=== PATIENT | female | born 1975 | race Caucasian/White ===

== ENCOUNTER 2023-10-05 07:54 | Inpatient (IN) ==
--- NOTE | 2023-06-25 12:04 | PAT Medication Instructions ---
Medication Instructions Date of Service June 25, 2023 Home Medications Cell Activator 1 tab PO BID acyclovir 200 mg capsule 200 mg PO BID amitriptyline 100 mg tablet 100 mg PO QPM PRN Sleep apremilast 30 mg tablet (Otezla) 30 mg PO BID duloxetine 60 mg capsule,delayed release (Cymbalta) 60 mg PO QAM multivitamin 1 tab PO BID pantoprazole 40 mg tablet,delayed release (Protonix) 40 mg PO QAM ASK your prescriber and surgeon apremilast 30 mg tablet (Otezla) 30 mg PO BID STOP taking 2 weeks before surgery (or as soon as possible if surgery is within 2 weeks) Cell Activator 1 tab PO BID DO NOT take the morning of surgery multivitamin 1 tab PO BID Take morning of surgery With a small sip of water, OTHERWISE NOTHING TO EAT OR DRINK AFTER MIDNIGHT: acyclovir 200 mg capsule 200 mg PO BID duloxetine 60 mg capsule,delayed release (Cymbalta) 60 mg PO QAM pantoprazole 40 mg tablet,delayed release (Protonix) 40 mg PO QAM Take evening before surgery acyclovir 200 mg capsule 200 mg PO BID amitriptyline 100 mg tablet 100 mg PO QPM PRN Sleep (if needed) multivitamin 1 tab PO BID Other Notes If you have any questions please call us at [phone] or [phone] or [phone] or [phone]
--- NOTE | 2023-06-26 13:59 | Anesthesiology Consultation ---
Date of Service June 26, 2023 Assessment & Plan (1) Encounter for pre-operative examination: Chart Review Chart Review: Acceptable Risk for Surgery (pending PCP clearance 07/05/23) and Patient seen in Pre Admission Testing - [facility] Per PAT appt on 06/26/23, no recent illness/disease exposures, illness related symptoms, or recent illness/disease positive tests. Will leave to surgeon's discretion if preop Covid testing needed Teaching & Discussion Pre-Anesthesia Teaching/Discussion Notes: Instructed NPO after midnight before surgery,except medications with 15 cc of water. Medication instructions provided according to the PAT guidelines. History Surgery Operation Date: 07/27/23 07:45 Proposed Procedures p L4-S1 Decompression and Fusion, Spinal Cord Monitoring - Adi Hunt DO Height/Weight Height: 5 ft 8 in Weight: 80.3 kg Allergies Allergy/AdvReac Type Severity Reaction Status Date / Time oxycodone [From Percocet] Allergy Mild itchy Verified 06/25/23 10:49 Medications Home Medications Medication Instructions Recorded Confirmed Last Taken Cell Activator 1 tab PO BID 06/25/23 06/25/23 Unknown acyclovir 200 mg capsule 200 mg PO BID 06/25/23 06/25/23 Unknown amitriptyline 100 mg tablet 100 mg PO QPM PRN Sleep 06/25/23 06/25/23 Unknown apremilast 30 mg tablet (Otezla) 30 mg PO BID 06/25/23 06/25/23 Unknown duloxetine 60 mg capsule,delayed 60 mg PO QAM 06/25/23 06/25/23 Unknown release (Cymbalta) multivitamin 1 tab PO BID 06/25/23 06/25/23 Unknown pantoprazole 40 mg tablet,delayed 40 mg PO QAM 06/25/23 06/25/23 Unknown release (Protonix) Past Medical History Medical History (Updated 06/26/23 @ 14:21 by Silvina Ridley PARadhaC) Anxiety Chronic back pain Depression GERD (gastroesophageal reflux disease) well controlled and stable History of COVID-2019--mild symptoms, no symptoms now Psoriasis Exercise / Class Metabolic Activity II 4-5 Yardwork/Stairs/Walk up hill (one flight of stairs - no chest pain or SOB ) Past Family History Family History Other No family history of adverse response to anesthesia Past Surgical History Surgical History History of benign breast biopsy History of section History of colonoscopy History of endometrial ablation History of esophagogastroduodenoscopy (EGD) History of hysterectomy with unilateral oophorectomy right removed History of nasal septoplasty x2 History of tonsillectomy History of tooth extraction all upper teeth removed History of total right knee replacement (TKR) History of umbilical hernia repair History of wisdom tooth extraction Past Anesthesia History No Hx of Anesthesia Complications and No Family Hx of Anesthesia Complications History of PONV No Hx of PONV and No Hx of Motion Sickness Social History Smoking Status: Former smoker Do You Dip or Chew Tobacco: No Smoking End Date: quit 1 month ago Hx Alcohol Use: No Hx Substance Use: No substance use type: does not use Review of Systems Patient denies chest pain, shortness of breath, dyspnea on exertion, cough, wheezing, palpitations. No hx of seizures, stroke, MO, apnea/snoring. No hx of blood clots or blood transfusions Physical Exam Vital Signs VITALS BP 114/75 P 99 TEMP 98.7 SP02 97% RESP 16 Constitutional no acute distress ENMT Mouth: no TMJ clicking Thyromental Distance: > or= 3.5 Finger Breadths (3.5) Mallampati Class: III Full upper plate Neck neck extension not limited Respiratory normal respiratory effort; no respiratory distress Auscultation: lungs clear to auscultation bilaterally; no wheezes Cardiovascular Rate/Rhythm: regular rate and regular rhythm Heart Sounds: no murmur Vessels: no carotid bruit Musculoskeletal Spine: no pain with cervical ROM Extremities: extremities normal to inspection Psychiatric Orientation: alert Lab Results Anesthesia Preop Results Results Anesthesia Widget: WBC 8.54 K/ul (4.8-10.8) 06/26/23 Hgb 13.8 g/dl (12.0-16.0) 06/26/23 Hct 40.0 % (37.0-47.0) 06/26/23 Plt 355 K/uL (130-400) 06/26/23 Na 140 mmol/L (136-145) 06/26/23 K 3.9 mmol/L (3.5-5.1) 06/26/23 Cl 102 mmol/L (98-107) 06/26/23 CO2 31 mmol/L (21-32) 06/26/23 BUN 12 mg/dl (6-23) 06/26/23 Creat 0.68 mg/dl (0.6-1.2) 06/26/23 Glucose Level 116 mg/dl (70-99(Fasting)) H 06/26/23 PT 10.3 Seconds (9.0-12.0) 06/26/23 PTT 27 Seconds (21-31) 06/26/23 INR 0.9 (0.9-1.1) 06/26/23 Urine Color Dark Yellow 06/26/23 Urine Appearance Clear (Clear) 06/26/23 Urine pH 6.5 (4.5-7.5) 06/26/23 Urine Specific [place] 1.008 (1.000-1.030) 06/26/23 Urine Protein Negative (Negative) 06/26/23 Urine Glucose (UA) Negative (Negative) 06/26/23 Urine Ketones Negative (Negative) 06/26/23 Urine Blood Negative (Negative) 06/26/23 Urine Nitrite Negative (Negative) 06/26/23 Urine Bilirubin Negative (Negative) 06/26/23 Urine Urobilinogen Negative (Negative) 06/26/23 Urine Leukocyte Esterase Negative (Negative) 06/26/23 Blood Type A Positive 06/26/23 Antibody Screen NEGATIVE 06/26/23 Testing Electrocardiogram Date: 06/26/23 Findings: + NSR @ (91bpm) Normal EKG per cardio Chest X-Ray Date: 06/26/23 Findings: + NAD
[~2023-10-05 07:54] MED LIST: CeleBREX 200 MG CAP PO SCH; GABAPENTIN 900 MG DOSE PO SCH; LR 15ML/HR IV SCH; LR 60ML/HR IV SCH; ceFAZolin 2000MG 2,000 MG/15 ML SYR IV SCH
--- NOTE | 2023-10-05 08:36 | History & Physical Bridge Note ---
Date of Service October 05, 2023 History & Physical Bridge Note I have examined the patient, reviewed the History & Physical and in the interval since the performance of the History & Physical I have noted the following changes of clinical significance: no changes noted
--- NOTE | 2023-10-05 08:36 | History & Physical Report ---
Date of Service October 05, 2023 Assessment & Plan (1) Neurogenic claudication due to lumbar spinal stenosis: Plan: L4-S1 decompression and fusion History of Present Illness Chief Complaint: Back and bilateral leg pain Primary Care Provider: Jake Pate This is a 47-year-old female who presents with chronic persistent back and leg pain after failing course of nonoperative care is here for surgical invention. Allergies Allergy/AdvReac Type Severity Reaction Status Date / Time oxycodone [From Percocet] AdvReac Mild itchy Verified 10/05/23 08:15 Home Medications Medication Instructions Recorded Confirmed Type Cell Activator 1 tab PO BID 06/25/23 10/05/23 History acyclovir 200 mg capsule 200 mg PO BID 06/25/23 10/05/23 History amitriptyline 100 mg tablet 100 mg PO QPM PRN Sleep 06/25/23 10/05/23 History apremilast 30 mg tablet (Otezla) 30 mg PO BID 06/25/23 10/05/23 History duloxetine 60 mg capsule,delayed 60 mg PO QAM 06/25/23 10/05/23 History release (Cymbalta) multivitamin 1 tab PO BID 06/25/23 10/05/23 History pantoprazole 40 mg tablet,delayed 40 mg PO QAM 06/25/23 10/05/23 History release (Protonix) cholecalciferol (vitamin D3) 125 125 mcg PO QAM 09/25/23 10/05/23 History mcg (5,000 unit) tablet (Vitamin D3) ibuprofen 200 mg tablet 200 mg PO TID PRN Pain 09/25/23 10/05/23 History Past Med/Surg History Problem List (Updated 10/05/23 @ 08:36 by Adi Hunt DO) Neurogenic claudication due to lumbar spinal stenosis Encounter for pre-operative examination Medical History (Updated 10/05/23 @ 08:36 by Adi Hunt DO) Bulging lumbar disc Psoriasis Chronic back pain GERD (gastroesophageal reflux disease) well controlled and stable Depression Anxiety History of COVID2019--mild symptoms, no symptoms now Surgical History History of section History of benign breast biopsy History of hysterectomy with unilateral oophorectomy right removed History of endometrial ablation History of total right knee replacement (TKR) History of colonoscopy History of esophagogastroduodenoscopy (EGD) History of umbilical hernia repair History of wisdom tooth extraction History of tooth extraction all upper teeth removed History of nasal septoplasty x2 History of tonsillectomy Family History Other No family history of adverse response to anesthesia Social History Smoking Status: Former smoker Tobacco Type: Cigarettes Smoking End Date: 05/2023; Second Hand Exposure: No; Do You Dip or Chew Tobacco: No; Tobacco Cessation Education Requested by Patient: No Hx Alcohol Use: No Hx Substance Use: No Preferred Language: Romanian Communication Ability: Effective Gaming Cage Worker Required: No Beliefs That Will Affect Care: None Current Living Situation: Family Current Living Situation Comment: Lives with 16 yr old daughter Other Information That Helps Us Care for You: No Feels Safe at Home: Yes Safety Concerns: Feels Safe At This Time Assistive Devices: Denture - Upper and Glasses Assistive Devices Comment: reading glasses Physical Exam Physical Exam: Patient is alert and oriented Heart regular in rhythm Lungs clear Results & Data Results & Data Vital Signs (Past 12 Hours) Vital Signs Temp Pulse Resp BP Pulse Ox O2 Del Method 10/05/23 08:15 36.9 C 103 H 18 136/94 98 Room Air
[2023-10-05] MEDS: LR 15ML/HR IV SCH (08:50)
[2023-10-05] MEDS: GABAPENTIN 900 MG DOSE PO SCH (08:51)
[2023-10-05] MEDS: LR 60ML/HR IV SCH (08:51)
[2023-10-05] MEDS: CeleBREX 200 MG CAP PO SCH (08:51)
[2023-10-05] MEDS ORDERED: fentaNYL citrate PF 100 MCG/2 ML VIAL ONE ×2 (09:03→10:18)
[2023-10-05] MEDS ORDERED: MIDAZOLAM HCL 1 MG/ML 2ML VIAL ONE (09:04)
[2023-10-05] MEDS: ceFAZolin 2000MG 2,000 MG/15 ML SYR IV SCH ×2 (09:14→18:18)
[2023-10-05] MEDS ORDERED: PROPOFOL IV EMULSION 10 MG/ML 20 ML VIAL IV ONE ×2 (09:36)
[2023-10-05] MEDS ORDERED: GLYCOPYRROLATE 0.2 MG/ML VIAL ONE ×2 (09:37→11:11)
[2023-10-05] MEDS ORDERED: DEXAMETHASONE SOD INJ 4 MG/ML VIAL ONE (09:37)
[2023-10-05] MEDS ORDERED: diphenhydrAMINE 50 MG/ML VIAL ONE (09:37)
[2023-10-05] MEDS ORDERED: ROCURONIUM BROMIDE 10 MG/ML 5 ML VIAL IV ONE ×2 (09:37→09:51)
[2023-10-05] MEDS ORDERED: ONDANSETRON INJ 2 MG/ML 2 ML VIAL ONE (09:37)
[2023-10-05] MEDS ORDERED: LIDOCAINE 2% 2 ML VIAL/AMP(20MG/ML) INFIL ONE (09:37)
[2023-10-05] MEDS: BUPIVACAINE/EPINEPHRINE 0.25% 1:200,000 30 ML VIAL ONE (09:42)
[2023-10-05] MEDS ORDERED: PHENYLEPHRINE 100MCG/ML 10ML SYR IV ONE (10:14)
[2023-10-05] MEDS ORDERED: ePHEDrine sulfate 50 MG/5 ML SYR ONE (10:56)
[2023-10-05] MEDS ORDERED: PHENYLEPHRINE HCL 10 MG/ML VIAL ONE (10:59)
[2023-10-05] MEDS: FLOSEAL HEMOSTATIC MATRIX 10ML TOP ONE (11:04)
[2023-10-05] MEDS: ceFAZolin 330 MG/ML 1 GM VIAL ONE (11:06)
[2023-10-05] MEDS ORDERED: NEOSTIGMINE METHYLSULFATE 1 MG/ML 10ML VIAL ONE (11:11)
--- NOTE | 2023-10-05 11:17 | Operative Report ---
Post Operative Report Pre & Post Diagnosis Operation Date: 10/05/23 09:15 Pre-Op Diagnosis: Neurogenic Claudication due to Lumbar Spinal Stenosis Post-Op Diagnosis: Neurogenic Claudication due to Lumbar Spinal Stenosis I identified the patient and participated in the time-out.: Yes Procedure Operation Date: 10/05/23 09:15 Actual Procedures #1 lumbar decompression with bilateral medial facetectomies and foraminotomies L4-L5 L5-S1. #2 posterior spinal fusion L4-S1. #3 placed posterior instrumentation L4 S1. #4 interbody fusion L4-L5 L5-S1. #5 history of Spira 14 x 26 mm L4-5 and 10 x 26 mm x 2 L5-S1. #6 placement locally harvested morselized autograft posterior) #7 placement infuse collagen sponge, with Koros bone graft in the posterior lateral gutters and Morpheus bone graft interbody space. Surgeon Adi Hunt, Hvac Mechanic Daryl Ellsworth Estimated Blood Loss 75 Findings Consistent with Post-Op Diagnosis Specimens None Indications This is a 47-year-old female presents problems diagnosis of failed course of nonoperative care is here for surgical invention. Description of Procedure Patient was met with identified informed consent obtained. Patient was then taken to the operative suite underwent patient placed in a prone position on the Ridge table on top of the Pérez frame. All bony promises well-padded eyes inspected to ensure no external precipice spine. This point lumbar spine was prepped and draped in normal sterile fashion. Sharp dissection with the assistance of Bovie cautery form down to and exposing the lamina transverse processes of L4-L5 and sacral ala bilaterally. From caudal cephalad fashion complete laminectomy of L5 was performed including bilateral medial facetectomies and foraminotomies addressing severe spinal stenosis. This was followed by complete laminectomy of L4 including bilateral medial facetectomies and foraminotomies addressing severe spinal stenosis. Pedicle screws were then placed in L4-L5 and S1 levels bilaterally with assistance of fluoroscopy in the process isabella placed. By way of transforaminal approach on the left a discectomy of L5-S1 was performed endplates guided to subcortical bleeding bone and a 10 x 26 mm spiral cage with Morpheus bone graft tapped in position. Then proceeded to the right transforaminal region completed discectomy at L5-S1 endplates guarded to subcortical bleeding bone and placed a second 10 x 26 mm spiral cage filled with Morpheus bone graft into position. Lastly approached L4-[address] of transfer approach the left complete discectomy performed endplates guarded to subcortical bleeding bone and a 14 x 26 mm spiral cage filled with Morpheus bone graft tapped in position. The rods were then locked in final position bilaterally. The transverse processes of L4-5 and the sacral ala burred to subcortical bleeding bone. Infuse collagen sponge, with Koros and local autograft placed in the posterior lateral gutters. 15 round NAJMA inserted. The incision was then closed with 1 Vicryl in the fascia 2-0 Vicryl subcutaneously and 4 Monocryl for final skin closure. Steri-Strips sterile dressing placed. Patient waken taken PACU stable condition. Please note spinal cord monitoring was utilized at the procedure no changes noted. Lastly Daryl Ellsworth was present at the entire surgery involved the patient positioning complex portion of the surgery and final skin closure. I attest to the content of the Intraoperative Record and any orders documented therein. Any exceptions are noted below.
[2023-10-05] MEDS ORDERED: ATROPINE SULFATE 0.1 MG/ML 10ML SYR IV PRN (11:42)
[2023-10-05] MEDS ORDERED: ONDANSETRON INJ 2 MG/ML 2 ML VIAL IV PRN ×2 (11:42→12:52)
[2023-10-05] MEDS ORDERED: ePHEDrine sulfate 50 MG/ML AMP IV PRN (11:42)
[2023-10-05] MEDS: fentaNYL citrate PF 100 MCG/2 ML VIAL IV PRN (11:45)
[2023-10-05] MEDS: HYDROmorphone INJ 2 MG/ML SYR/VIAL IV PRN (12:15)
--- NOTE | 2023-10-05 12:15 | Fluoroscopy Report ---
FL lumbar spine 2-3V CLINICAL HISTORY: L4-S1 DECOMPRESSION AND FUSION TECHNIQUE: 2 views were obtained with the C-arm in the OR with the above procedure. Total fluoroscopy time was 26.3 seconds. Radiation dose was 21.12 mGy. Comparison: None available at the time of this dictation. FINDINGS/IMPRESSION: Intraoperative images were obtained of L4-S1 decompression. Please correlate with intraoperative fluoroscopy and operative report. ACT 112: Negative or not required by law. Electronically signed by: Raimundo Chow M.D. 10/05/2023 12:13 PM
--- NOTE | 2023-10-05 12:20 | Anesthesiology Progress Note ---
Date of Service October 05, 2023 Anesthesia Post Procedure Vital Signs Vital Signs: Temp Pulse Pulse Resp BP Pulse Ox O2 Del Method 10/05/23 12:15 98.2 F 91 H 12 124/77 98 Nasal Cannula 10/05/23 12:05 89 14 134/80 97 Nasal Cannula 10/05/23 11:55 95 H 14 154/89 H 100 Nasal Cannula 10/05/23 11:45 85 12 135/82 100 Oxymask 10/05/23 11:38 97.0 F L 99 H 18 142/86 H 100 Oxymask 10/05/23 08:15 98.4 F 103 H 18 136/94 98 Room Air O2 Flow Rate 10/05/23 12:15 2 10/05/23 12:05 2 10/05/23 11:55 2 10/05/23 11:45 4 10/05/23 11:38 6 10/05/23 08:15 Pain Intensity Left Lower Back: Pain Intensity: 4 Lower Back: Pain Intensity: 7 Transfer of Care Handoff Completed per policy Notes Mental Status: alert / awake / arousable and participated in evaluation Patient Amnestic to Procedure: Yes Nausea / Vomiting: adequately controlled Pain: adequately controlled Airway Patency, RR, SpO2: stable & adequate BP & HR: stable & adequate Hydration State: stable & adequate Anesthetic Complications: no major complications apparent and Pt Satisfied with anesthetic care
[2023-10-05] MEDS ORDERED: METOCLOPRAMIDE HCL INJ 5 MG/ML 2 ML VIAL IV PRN (12:52)
[2023-10-05] MEDS ORDERED: hydrOXYzine HCl 25 MG TAB PO PRN (12:52)
[2023-10-05] MEDS ORDERED: NALOXONE HCL 0.4 MG/1 ML VIAL/CARP IV PRN (12:52)
[2023-10-05] MEDS ORDERED: DO NOT ADMINISTER PNEUMOCOCCAL VACCINE PRN (12:52)
[2023-10-05] MEDS ORDERED: ACETAMINOPHEN 500 MG TAB PO PRN (12:52)
[2023-10-05] MEDS ORDERED: ONDANSETRON 4 MG OD TAB PO PRN (12:52)
[2023-10-05] MEDS ORDERED: diphenhydrAMINE Capsule 25 MG CAP PO PRN (12:52)
[2023-10-05] MEDS ORDERED: ACETAMINOPHEN 1,000 MG/100 ML VIAL IV PRN (12:52)
[2023-10-05] MEDS ORDERED: LORazepam 0.5 MG TAB PO PRN (12:52)
[2023-10-05] MEDS ORDERED: PROMETHAZINE HCL 12.5 MG in SODIUM CHLORIDE 0.9% 50 ML IV PRN (12:52)
[2023-10-05] MEDS ORDERED: AMITRIPTYLINE HCL 100 MG TAB PO PRN (12:52)
[2023-10-05] MEDS ORDERED: SOD PHOSPHATE/SOD BIPHOSPHATE ENEMA 132 ML BTL PR PRN (12:52)
[2023-10-05] MEDS ORDERED: MAGNESIUM HYDROXIDE SUSP 30 ML UDC PO PRN (12:52)
[2023-10-05] MEDS ORDERED: ALUMINUM/MAGNESIUM SUSP 30 ML UDC PO PRN (12:52)
[2023-10-05] MEDS ORDERED: DO NOT ADMINISTER FLU VACCINE PRN (12:52)
[2023-10-05] MEDS ORDERED: LORazepam 0.5 MG in SYRINGE 0.25 ML IV PRN (12:52)
[2023-10-05] MEDS ORDERED: bisacodyL 10 MG SUPP PR PRN (12:52)
[2023-10-05] MEDS ORDERED: FAMOTIDINE 20 MG TAB PO PRN (12:52)
[2023-10-05] MEDS: fentaNYL citrate PF 100 MCG/2 ML VIAL ONE (12:53)
[2023-10-05] MEDS: HYDROmorphone INJ 2 MG/ML SYR/VIAL ONE (12:53)
--- NOTE | 2023-10-05 13:16 | Hospitalist Consultation ---
<Statement entered by Jorge Shaikh DO - 10/05/23 15:24> I have seen and examined the patient and have discussed the case with the provider above. I have reviewed the advanced practitioner's documentation, and I agree with, and take responsibility for that plan of care. Date of Consultation October 05, 2023 Assessment & Plan (1) Neurogenic claudication due to lumbar spinal stenosis: (2) Psoriasis: (3) Depression: (4) Anxiety: (5) GERD (gastroesophageal reflux disease): Neurogenic Claudication due to Lumbar Spinal Stenosis Chronic Back Pain with radiculopathy - S/p L4-S1 Decompression and Fusion by Dr. Hunt on 10/05/23. - POD #0 - Pain management, bowel regimen and DVT ppx per the primary team - PT/OT consults, pt lives in ranch style home with 16 yo daughter - Follow am CBC to monitor for acute blood loss, last H&H of 12.5/37.5 per anesthesiology consultation Psoriasis -Pt may continue apremilast 30 mg tab BID, takes acyclovir 200 mg BID for suppression of genital herpes zoster. - Pt reports she is not longer taking cell activator supplement Anxiety Depression Insomnia -Continue duloxetine 60 mg daily, amitriptyline 100 mg daily, takes lorazepam 0.5 mg HS prn for sleep. Tizanidine 4 mg HS prn, and Trazodone 50 mg HS GERD -Chronic, stable, continue omeprazole hx of Tobacco Use - Quit smoking in May 2023, encouraged continued cessation at bedside DVT ppx: teds, scds in place Lines: 2 PIV, NAJMA drain back FEN/GI: Clears, advance as tolerated CODE: Full code Dispo: From home, likely to remain in the hospital x 1-2 days Thank you for involving us in the care of Ms. Olvera. If you have any questions or concerns please do not hesitate to call. At this time medicine will follow along. A total of 40 minutes were spent with greater than 50% of that time face to face with the patient, personally reviewing all current laboratories, imaging studies, past medication reconciliation, outpatient chart review, and discussion with specialists to collaborate care for the patient with attending. Please see attending documentation for corrections and/or additions. History of Present Illness Reason for Consultation: Medical management Requesting Physician: Dr. Hunt Attending Physician: Adi Hunt DO History of Present Illness This is a 47 yo F with PMHx of psoriasis, GERD, depression, anxiety who presented for elective L4-S1 Decompression and Fusion by Dr. Hunt on 10/05/23. Patient is doing very well, her sister is present with her at bedside. Reports that she is having significant lower back pain/pressure, and is requesting medication for such. Discussed with nursing regarding giving small bolus of IV medication and [place] tablet for long-lasting relief. Patient states that her last bowel movement was yesterday, routinely moving every 1-2 days. Patient has trialed sips of water at bedside, tolerating. States her throat is hoarse s/p surgery. Patient lives at home in a ranch style house with her 16-year-old daughter. Patient did not take any of her routine medications this morning for surgical procedure. Allergies Allergy/AdvReac Type Severity Reaction Status Date / Time oxycodone [From Percocet] AdvReac Mild itchy Verified 10/05/23 08:15 Home Medications Medication Instructions Recorded Confirmed Type acyclovir 200 mg capsule 200 mg PO BID 06/25/23 10/05/23 History amitriptyline 100 mg tablet 100 mg PO QPM PRN Sleep 06/25/23 10/05/23 History apremilast 30 mg tablet (Otezla) 30 mg PO BID 06/25/23 10/05/23 History duloxetine 60 mg capsule,delayed 60 mg PO QAM 06/25/23 10/05/23 History release (Cymbalta) multivitamin 1 tab PO BID 06/25/23 10/05/23 History pantoprazole 40 mg tablet,delayed 40 mg PO QAM 06/25/23 10/05/23 History release (Protonix) cholecalciferol (vitamin D3) 125 125 mcg PO QAM 09/25/23 10/05/23 History mcg (5,000 unit) tablet (Vitamin D3) ibuprofen 200 mg tablet 200 mg PO TID PRN Pain 09/25/23 10/05/23 History Patient History Medical History (Updated 10/05/23 @ 08:36 by Adi Hunt DO) Bulging lumbar disc Psoriasis Chronic back pain GERD (gastroesophageal reflux disease) well controlled and stable Depression Anxiety History of 2019--mild symptoms, no symptoms now Surgical History History of section History of benign breast biopsy History of hysterectomy with unilateral oophorectomy right removed History of endometrial ablation History of total right knee replacement (TKR) History of colonoscopy History of esophagogastroduodenoscopy (EGD) History of umbilical hernia repair History of wisdom tooth extraction History of tooth extraction all upper teeth removed History of nasal septoplasty x2 History of tonsillectomy Family History Other No family history of adverse response to anesthesia Social History Smoking Status: Former smoker Tobacco Type: Cigarettes Smoking End Date: 05/2023; Second Hand Exposure: No; Do You Dip or Chew Tobacco: No; Tobacco Cessation Education Requested by Patient: No Hx Alcohol Use: No Hx Substance Use: No Preferred Language: Ukrainian Communication Ability: Effective Butadiene Converter Operator Required: No Beliefs That Will Affect Care: None Current Living Situation: Family Current Living Situation Comment: Lives with 16 yr old daughter Other Information That Helps Us Care for You: No Feels Safe at Home: Yes Safety Concerns: Feels Safe At This Time Assistive Devices: Denture - Upper and Glasses Assistive Devices Comment: reading glasses Review of Systems Review of Systems: Constitutional: No fever, chills, sweats, fatigue or weakness Eyes: No diplopia, no changes in vision ENT: No sore throat, tinnitus, or trouble swallowing, + hoarse voice, endentulous Respiratory: No shortness of breath, No dyspnea at rest or on exertion, no cough or sputum Cardiovascular: No chest pain, palpitations, or flutter Abdomen: No pain, No constipation, No diarrhea, No nausea, No vomiting Back: + lower back pain and pressure Musculoskeletal: No calf pain, No joint pain, No swelling Genitourinary : No dysuria or urinary frequency, No hematuria, no recent herpetic outbreaks Neurologic: No numbness/tingling, no difficulty with ambulation, no sensory or motor deficits Psychiatric: hx of depression and anxiety, stable Endocrine: No fatigue, No weight changes Integumentary: No itch, No rash Physical Exam Physical Exam: General: awake, alert, no apparent distress, white female Head: Normocephalic, atraumatic ENT: PERRL, EOMI, + edentulous, upper denture at bedside, no pharyngeal exudate, mucous membranes moist Chest: Clear to auscultation, on room air, no adventitious breath sounds Cardiac: Regular rate and rhythm, no murmur, no JVD, normal peripheral pulses, good capillary refill Abdominal: NABS x 4 quadrants, soft, nondistended, nontender to palpation, no rebound or guarding Back: Not examined due to pain s/p surgery and just has arrived to the floor, NAJMA drain in place with bloody serosanginous outs. Extremities: Normal inspection, no peripheral edema or erythema, calfs nontender to palpation Psych: Normal mood and affect Neuro: AAO x 3, strength intact bilaterally and rated 5/5, no motor deficits, speech is clear, no peripheral sensory deficits Results & Data Results & Data Vital Signs (Past 12 Hours) Vital Signs Temp Pulse Pulse Resp BP Pulse Ox O2 Del Method 10/05/23 12:40 36.8 C 86 16 125/67 94 Nasal Cannula 10/05/23 12:25 90 12 132/71 97 Nasal Cannula 10/05/23 12:15 36.8 C 91 H 12 124/77 98 Nasal Cannula 10/05/23 12:05 89 14 134/80 97 Nasal Cannula 10/05/23 11:55 95 H 14 154/89 H 100 Nasal Cannula 10/05/23 11:45 85 12 135/82 100 Oxymask 10/05/23 11:38 36.1 C L 99 H 18 142/86 H 100 Oxymask 10/05/23 08:15 36.9 C 103 H 18 136/94 98 Room Air O2 Flow Rate 10/05/23 12:40 2 10/05/23 12:25 2 10/05/23 12:15 2 10/05/23 12:05 2 10/05/23 11:55 2 10/05/23 11:45 4 10/05/23 11:38 6 10/05/23 08:15
[2023-10-05] MEDS: HYDROCODONE/ACETAMOPHEN 5/325MG TAB PO PRN (13:34)
[2023-10-05] MEDS: HYDROmorphone INJ 0.5 MG/0.5 ML SYR IV PRN (13:34)
[2023-10-05] MEDS: LACTATED RINGER'S 1,000 ML IV SCH (13:57)
[2023-10-05] MEDS: OTEZLA~ORDER AWAITING ACTION SCH (15:22)
[2023-10-05] MEDS: traMADol HCL 50 MG TABLET PO PRN (17:29)
[2023-10-05] MEDS ORDERED: [UNRECOGNIZED DRUG - OTHER] PO SCH (21:00)
[2023-10-05] MEDS: ACYCLOVIR 200 MG CAP PO SCH (21:41)
[2023-10-05] MEDS: MULTIVITAMIN TAB PO SCH (21:41)
[2023-10-05] MEDS: DOCUSATE SODIUM/SENNA 50/8.6MG TAB PO SCH (21:41)
[2023-10-06] MEDS: HYDROmorphone INJ 1 MG/ML SYRINGE IV PRN (06:16)
[2023-10-06] MEDS: POLYETHYLENE (MIRALAX) 17 GM PACK PO SCH (06:17)
[2023-10-06 06:20] LABS: BUN Creatinine Ratio 17.7 (10-20); Calcium 8.9 mg/dl (8.6-10.3); Creatinine Clr Calc Pharmacy 124.9 ml/min; Est GFR (African American) 123.6 ml/min; Est GFR (Non-African American) 106.6 ml/min; Potassium 4.2 mmol/L (3.5-5.1)
[2023-10-06 06:50] LABS: Basophils # (auto) 0.03 K/uL (0.00-0.20); Basophils % (auto) 0.2 %; Eosinophils # (auto) 0.07 K/uL (0.00-0.50); Eosinophils % (auto) 0.6 %; Hematocrit (blood only) 33.5 % (37.0-47.0); Hemoglobin 11.1 g/dl (12.0-16.0); Immature Granulocytes # (auto) 0.09 K/uL (0.01-0.20); Immature Granulocytes % (auto) 0.7 %; Lymphocytes # (auto) 2.84 K/uL (1.20-3.40); Lymphocytes % (auto) 23.6 %; Mean Corpuscular Hemoglobin 31.2 pg (25.0-34.0); Mean Corpuscular Hgb Conc 33.1 g/dL (32.0-36.0); Mean Corpuscular Volume 94.1 fL (80.0-100.0); Mean Platelet Volume 9.5 fL (9.4-12.4); Monocytes % (auto) 7.5 %; Neutrophils # (auto) 8.08 K/uL (1.40-6.50); Neutrophils % (auto) 67.4 %; Platelet Count 286 K/uL (130-400); RDW Coefficient of Variation 12.3 % (11.5-14.5); RDW Standard Deviation 42.5 fL (36.4-46.3); Red Blood Count 3.56 M/uL (4.20-5.40); White Blood Count 12.01 K/ul (4.8-10.8)
--- NOTE | 2023-10-06 08:30 | Orthopedic Progress Note ---
Date of Service October 06, 2023 Assessment & Plan (1) Neurogenic claudication due to lumbar spinal stenosis: Plan: Assessment status post lumbar decompression fusion for plan this time initiate physical therapy monitor NAJMA output anticipate discharge home in next few days. Admission and Anticipated Discharge Date Admission Date: October 05, 2023 Subjective Back pain controlled leg pain improved Physical Exam Physical Exam: Patient is in the chair at the bedside. She is comfortable. Is for strength testing. Results & Data Vital Signs (Past 12 Hours) Vital Signs Temp Pulse Resp BP Pulse Ox O2 Del Method 10/06/23 07:05 36.7 C 75 18 115/77 99 Room Air 10/06/23 03:35 36.8 C 74 18 121/76 98 Room Air 10/06/23 00:20 37.3 C 79 19 111/74 94 Room Air
[2023-10-06] MEDS: DULoxetine HCL 60 MG CAP PO SCH (09:26)
[2023-10-06] MEDS: PANTOprazole 40 MG TAB PO SCH (09:26)
[2023-10-06] MEDS: CHOLECALCIFEROL 125 MCG (5,000 UNITS) TAB PO SCH (09:26)
--- NOTE | 2023-10-06 09:55 | Hospitalist Progress Note ---
Date of Service October 06, 2023 Assessment & Plan (1) Neurogenic claudication due to lumbar spinal stenosis: (2) Psoriasis: (3) Depression: (4) Anxiety: (5) GERD (gastroesophageal reflux disease): Plan: Neurogenic Claudication due to Lumbar Spinal Stenosis Chronic Back Pain with radiculopathy - S/p L4-S1 Decompression and Fusion by Dr. Hunt on 10/05/23. - POD #1 - Pain management, bowel regimen and DVT ppx per the primary team - PT/OT consults, pt lives in ranch style home with 16 yo daughter - Follow am CBC to monitor for acute blood loss Psoriasis -Pt may continue apremilast 30 mg tab BID, takes acyclovir 200 mg BID for suppression of genital herpes zoster. - Pt reports she is not longer taking cell activator supplement Anxiety Depression Insomnia -Continue duloxetine 60 mg daily, amitriptyline 100 mg daily, takes lorazepam 0.5 mg HS prn for sleep. Tizanidine 4 mg HS prn, and Trazodone 50 mg HS GERD continue omeprazole hx of Tobacco Use Encourage continued cessation DVT ppx: per orthospine Diet: advance as tolerated Dispo: per orthospine Admission and Anticipated Discharge Date Admission Date: October 05, 2023 Subjective Pt was seen standing while going to the bathroom. Notes occasional twinges of pain. noting some bloating Otherwise denies acute concerns Review of Systems Review of Systems: All systems reviewed & are unremarkable except as noted in Subjective Physical Exam Physical Exam: General: Alert, oriented. No acute distress Psych: Appropriate mood and affect Neuro: Using a walker, difficulty with gait postop HEENT: NC/AT Chest: Nontender to palpation. CV: RRR Resp: Breath sounds clear bilaterally, no increased effort of breathing. Abdomen: . Soft, nontender, nondistended. Extremities: No edema in lower extremities bilaterally. Results & Data Results & Data Vital Signs (Past 12 Hours) Vital Signs Temp Pulse Resp BP Pulse Ox O2 Del Method 10/06/23 07:05 36.7 C 75 18 115/77 99 Room Air 10/06/23 03:35 36.8 C 74 18 121/76 98 Room Air 10/06/23 00:20 37.3 C 79 19 111/74 94 Room Air
[2023-10-06] MEDS: dexAMETHasone 6 MG in SYRINGE 0 ML IV SCH (09:59)
[2023-10-06] MEDS ORDERED: Nursing to Pharmacy Communication SCH (13:15)
[2023-10-06] MEDS: APREMILAST PO SCH (21:01)
[2023-10-06] MEDS: [UNRECOGNIZED DRUG - OTHER] PO SCH (21:01)
[2023-10-07 05:55] LABS: Hematocrit (blood only) 30.9 % (37.0-47.0); Hemoglobin 10.3 g/dl (12.0-16.0); Mean Corpuscular Hemoglobin 30.7 pg (25.0-34.0); Mean Corpuscular Hgb Conc 33.3 g/dL (32.0-36.0); Mean Corpuscular Volume 92.2 fL (80.0-100.0); Mean Platelet Volume 9.4 fL (9.4-12.4); Platelet Count 276 K/uL (130-400); RDW Coefficient of Variation 12.2 % (11.5-14.5); RDW Standard Deviation 41.1 fL (36.4-46.3); Red Blood Count 3.35 M/uL (4.20-5.40); White Blood Count 11.13 K/ul (4.8-10.8)
[2023-10-07 06:05] LABS: Calcium 8.7 mg/dl (8.6-10.3); Creatinine Clr Calc Pharmacy 146.1 ml/min; Est GFR (African American) 130.1 ml/min; Est GFR (Non-African American) 112.3 ml/min; Potassium 3.8 mmol/L (3.5-5.1)
--- NOTE | 2023-10-07 09:28 | Hospitalist Progress Note ---
Date of Service October 07, 2023 Assessment & Plan (1) Neurogenic claudication due to lumbar spinal stenosis: (2) Psoriasis: (3) Depression: (4) Anxiety: (5) GERD (gastroesophageal reflux disease): Plan: Neurogenic Claudication due to Lumbar Spinal Stenosis Chronic Back Pain with radiculopathy - S/p L4-S1 Decompression and Fusion by Dr. Hunt on 10/05/23. - POD #2 - Pain management, bowel regimen and DVT ppx per the primary team - PT/OT consults, pt lives in ranch style home with 16 yo daughter - Follow am CBC to monitor for acute blood loss, hemoglobin stable at 10 on discharge Psoriasis -Pt may continue apremilast 30 mg tab BID, takes acyclovir 200 mg BID for suppression of genital herpes zoster. - Pt reports she is not longer taking cell activator supplement Anxiety Depression Insomnia -Continue duloxetine 60 mg daily, amitriptyline 100 mg daily, takes lorazepam 0.5 mg HS prn for sleep. Tizanidine 4 mg HS prn, and Trazodone 50 mg HS GERD continue omeprazole hx of Tobacco Use Encourage continued cessation DVT ppx: per orthospine Diet: advance as tolerated Dispo: per orthospine Admission and Anticipated Discharge Date Admission Date: October 05, 2023 Subjective Pt was seen while laying in bed. Having some pain, passing gas. Would like to go home. Otherwise denies acute concerns Review of Systems Review of Systems: All systems reviewed & are unremarkable except as noted in Subjective Physical Exam Physical Exam: General: Alert, oriented. No acute distress Psych: Appropriate mood and affect Neuro: difficulty with movements in the bed post op HEENT: NC/AT Chest: Nontender to palpation. CV: RRR Resp: Breath sounds clear bilaterally, no increased effort of breathing. Abdomen: . Soft, nontender, nondistended. Extremities: No edema in lower extremities bilaterally. Results & Data Results & Data Vital Signs (Past 12 Hours) Vital Signs Temp Pulse Resp BP Pulse Ox O2 Del Method 10/07/23 07:19 36.6 C 83 18 118/75 98 Room Air
--- NOTE | 2023-10-07 10:18 | Discharge Summary ---
Date of Service October 07, 2023 Admission HPI Per Admitting Provider This is a 47-year-old female who presents with chronic persistent back and leg pain after failing course of nonoperative care is here for surgical invention. Principal Diagnosis Lumbar spinal stenosis with neurogenic claudication Discharge Data Allergies Allergy/AdvReac Type Severity Reaction Status Date / Time oxycodone [From Percocet] AdvReac Mild itchy Verified 10/05/23 08:15 Consultations 10/05/23 12:52 Consult Hospitalist Routine Procedures Performed Operation Date: 10/05/23 09:15 Actual Procedures p L4-S1 Decompression and Fusion, Spinal Cord Monitoring(Not Applicable) - Adi Hunt DO Ordered Studies 10/05/23 09:15 FL lumbar spine 2-3V Routine Hospital Course (1) Neurogenic claudication due to lumbar spinal stenosis: Patient underwent lumbar decompression fusion tolerated as well as taken to the orthopedic floor postoperative. Postoperatively she progressed appropriately. Leg pain markedly improved. Back pain controlled. NAJMA drain decreasing well. Subsequent discharge home. Discharge orders instructions from the chart for further review. Total Time Total Time Spent Total Time Spent (In Minutes): 20 minutes Discharge Plan Discharge Items Patient Disposition: Home - Self-Care Reason For Visit: Spinal Stenosis, Lumbar Region with Neurogenic Cla Discharge Diagnosis: Lumbar spinal stenosis with neurogenic claudication Activity: Per Instructions section Non-emergency contact: Primary Care Provider Call non-emergency contact if: you have any medication questions Follow-up/Referrals: Jake Pate D.O. [Primary Care Provider] - Diet: Regular Addtl Attending Provider Instructions: ACTIVITY RECOMMENDATIONS: SELF CARE INSTRUCTIONS AFTER THORACIC/LUMBAR FUSIONS 1. You may walk to your tolerance. It is good exercise for your legs and back. Expect some back and intermittent leg aches and pains. 2. You may perform "counter-top" level activities (make a sandwich, soraida with a project, etc.). 3. No bending or lifting of more than 10 pounds or back twisting of any nature (roll like a log when turning in bed). 4. You may ride in a car for 20-30 minutes at a time. No driving until after your first visit with your doctor. 5. Frequent changes of position and restricting sitting to 30 minutes at a time will help limit the amount of back spasms and stiffness you may experience. 6. You may discontinue the use of ambulatory aids (cane, crutches, etc.) once your strength and confidence allow. 7. You may helper coordinator the shower and let water strike your incision when you arrive home at least once daily. Do not take a tub bath, sit in a hot tub or go into a swimming pool until after your first recheck in the office. SPECIAL CARE INSTRUCTIONS: VERY IMPORTANT TO READ AND REVIEW A. Your surgical incision has been closed with a cosmetic suture under the skin that will dissolve in about 6 weeks. In 14 days, you can use a pair of clean scissors and cut the suture that is left outside of the skin at the ends of your incision. 1. The small skin tapes can be removed 7 days after surgery if they have not fallen off by that point. 2. You may keep the wound open to air as much as possible to promote healing after post-op day number 5 unless told otherwise by your doctor. 3. If you think the wound looks like it is becoming infected (redness or worsening drainage) and/or you are experiencing fever, chill or worsening back pain and muscle spasms, contact the office so that we may evaluate you as soon as possible. B. Complications are uncommon, but please contact us if you have any signs or symptoms of: 1. wound infection (fever higher than 102.5 degrees F, redness, separation of wound, drainage, or increasing pain from the incision) 2. blood clots in legs (pain, swelling, redness and warmth in legs) 3. urinary tract infection (fever higher than 102.5 degrees F, burning upon urination or increased frequency of urination) 4. nerve problems (inability to walk on your toes or heels, numbness, loss of bowel or bladder control) 5. any other symptoms that concern you C. Please call the office at if you have any concerns or questions about your operation or recovery. D. No smoking! Smoking drastically decreases the chance of a solid fusion. E. Do not take any anti-inflammatory medications (Indocin, Advil, Motrin, Aspirin, Naprosyn, etc.) as these may inhibit the chance of a solid fusion. Tylenol is okay to take for pain. MANAGING PAIN AFTER SPINAL SURGERY 1. Narcotic medication is intended for short-term use and will be provided for surgical pain. Surgical pain usually lasts for a period of 4-6 weeks. Narcotic medication includes Percocet, Vicodin, Darvocet, Tylenol #3 or Lortab. 2. Longer-term pain is more appropriately treated with non-narcotic medication such as Tylenol ES. 3. Muscle spasm is not appropriately treated with narcotics. Muscle relaxers such as Soma, Flexeril or Skelaxin can be used along with Tylenol ES. 4. Remember that we all live with some "aches and pains". This is not unusual or uncommon after an injury or as we get older. a. Back pain is expected and may include muscle spasms for 4 to 6 weeks a fter surgery. The pain should gradually improve. If the pain worsens for no apparent reason, please contact the office. b. Intermittent leg pain may also be experienced and should not be concerned about unless it worsens for no apparent reason. If so, please contact the office. 5. We will provide appropriate medication within the normal guidelines of their prescribed use. We will also be very cautious and aware of potential abuse and extended duration of patients' medication needs. a. Pain medications are for your comfort and to assist with sleep and rest so that the tissue can heal. They are not provided in order to return to normal activity and should not be used through the day. To do so or worsening pain at night can result from ongoing tissue damage and development of tolerance to the prescribed medicine. 6. Please allow 2-3 days to process refills. Prescriptions will not be mailed but must be picked up at the office. FOLLOW UP VISIT: Keep your scheduled follow-up appointment. Any questions, please call the office at . Pending Studies at Discharge: No Stand-Alone Forms: [email or web address], Smoking Cessation Medications and DC Order Prescriptions: New tramadol 50 mg tablet 50 mg PO Q6H PRN (Reason: pain, moderate) Qty: 30 0RF oxycodone 5 mg tablet 5 mg PO Q6H PRN (Reason: pain) Qty: 30 0RF Continued multivitamin Tablet 1 tab PO BID pantoprazole [Protonix] 40 mg Tablet,Delayed Release (Dr/Ec) 40 mg PO QAM acyclovir 200 mg Capsule 200 mg PO BID amitriptyline 100 mg Tablet 100 mg PO QPM PRN (Reason: Sleep) duloxetine [Cymbalta] 60 mg Capsule,Delayed Release(Dr/Ec) 60 mg PO QAM Otezla 30 mg Tablet 30 mg PO BID ibuprofen 200 mg Tablet 200 mg PO TID PRN (Reason: Pain) cholecalciferol (vitamin D3) [Vitamin D3] 125 mcg (5,000 unit) Tablet 125 mcg PO QAM Discharge Orders: Discharge Order (Routine); Ordered 10/07/23 Ordered By: Adi Hunt Admission Data Admit Date/Time: 10/05/23 11:20 Attending Provider: Adi Hunt Admit Provider: Adi Hunt Primary Care Provider: Jake Pate Other Providers: Jazlyn Stone
== END 2023-10-07 13:07 | disposition home or self-care (01) | DRG 455 ==
LOC: ASU 07:54 → 3E 11:20